=== PATIENT | female | born 1960 | race Asian ===

== ENCOUNTER 2024-02-08 20:20 | Emergency (ER) | payer OTHER, SELFPAY ==
[2024-02-08 20:24] VITALS: BP 138/90
--- NOTE | 2024-02-08 20:57 | ED.GENMED ---
History of Present Illness
General
Chief Complaint: Insect Sting
Source: patient
Exam Limitations: none
Time Seen by Provider: 02/08/24 20:45
Nursing documentation reviewed up to this point in time: agreed with
History of Present Illness
History of Present Illness:
63-year-old female presenting to the emergency department after multiple bee stings prior to arrival. No trouble swallowing or breathing no abdominal pain no nausea vomiting no additional concerns there is pain at the immediate sting sites
Review of Systems
Review of Systems
Allergies reviewed?: Yes
All Other Systems: ROS reviewed and negative except as documented in HPI and ROS
Phy Exam
Physical Exam
Physical Exam:
GENERAL: Alert , in no apparent distress
EYE: pupils equal and reactive
NECK: Supple, no significant adenopathy.
ENT: o/p clr, mmm.
CARDIAC: Regular rate and rhythm .
LUNGS: Clear breath sounds bilaterally, no acute respiratory distress, no wheezes/rales/rhonchi
ABDOMEN: Soft, without focal tenderness, no r/g, no cvat
NEUROLOGICAL: Alert and oriented, no focal neuro deficits
SKIN: Scattered red small welts of the lower extremities warm and dry, skin intact.
MUSCULOSKELETAL: No edema, well perfused.
PSYCH: Normal and appropriate interaction.
Course
Orders/Labs/Results
Orders:
Orders
02/08/24 20:58
Diphenhydramine [Benadryl] 25 mg PO NOW STA
Ibuprofen [Motrin] 400 mg PO NOW STA
Vital Signs
Initial and Last Documented VS:
Initial Vital Signs
Temp Pulse Resp BP Pulse Ox
98.2 F 70 22 138/90 98
02/08/24 20:24 02/08/24 20:24 02/08/24 20:24 02/08/24 20:24 02/08/24 20:24
Last Documented Vital Signs
Temp Pulse Resp BP Pulse Ox
98.2 F 70 22 138/90 98
02/08/24 20:24 02/08/24 20:24 02/08/24 20:24 02/08/24 20:24 02/08/24 20:24
MDM/Problems Addressed
MDM/Problems Addressed:
63-year-old female presenting to the emergency department today with concerns of multiple bee stings mainly to the lower extremities. Otherwise appears well no evidence of anaphylaxis treated with Benadryl and Motrin otherwise stable for discharge.
*Critical Care Note
Total Time (30-74mins, 75-104mins- exclusive of procedures): Not Applicable
ED Attending Note
-
Portions of this chart may have been created with voice recognition software.� Occasional wrong word or��sound alike� substitutions may have occurred due to the inherent limitations of voice recognition software.
Discharge Plan
Departure
Patient Disposition: Home (Routine Discharge)
Date of Disposition: 02/08/24
Time of Disposition: 20:58
Patient with high blood pressure during this ER visit?: No
Condition: Good
Covid-19: Not Applicable
Discharge Problem:
Bee sting
Instructions: Insect Bites and Stings (DC)
Activity Restrictions/Additional Instructions:
You came to the emergency department today after bee sting. Please use Benadryl as needed every 6 hours as well as Motrin for discomfort. You can also put ice on the area to help with symptoms. Return for any worsening, new or concerning symptoms.
Discharge Date and Time
Print Language: MONGOLIAN
[2024-02-08] MEDS: BENADRYL 25 MG PO (21:17)
[2024-02-08] MEDS: MOTRIN 400 MG PO (21:17)
== END 2024-02-08 21:37 | disposition home or self-care (01) ==
LOC: EMR 20:20
PROVIDERS: EMERGENCY PHYSICIAN Emergency Medicine; FAMILY PHYSICIAN Family Medicine
DX: T63.441A Toxic effect of venom of bees, accidental (unintentional), initial encounter (principal)
CPT/HCPCS: 99282